=== PATIENT | male | born 1960 | race Caucasian/White ===

== ENCOUNTER → 2023-03-01 | Outpatient (CLI) | payer MEDICAID ==
[~2023-03-01] VITALS: Ht 179.1 cm; Wt 93.4 kg
[~2023-03-01] MED LIST: AMARYL4 MG PO; FLEXERIL 1010 MG/TAB PO; GRALISE300 MG PO; IMDUR 30MG30 MG/TAB PO; JARDIANCE10 PO; LIPITOR 80MG80 MG PO; LOPRESSOR 225 MG/TAB PO; NITROSTAT0.4 MG/TAB SL; PRINIVIL20 MG PO; REVATIO20 MG PO; TRULICITY4.5 MG/0.5 SQ; ZOVIRAX800 MG PO
[2023-03-01 10:52] VITALS: BP 138/83; PULSE 72; TEMP 97.3
== END ==
LOC: COL.CARD 10:41
DX: I25.10 Atherosclerotic heart disease of native coronary artery without angina pectoris (principal)
CPT/HCPCS: A9500